=== PATIENT | male | born 1985 | race Caucasian/White ===

== ENCOUNTER 2021-05-13 13:24 | Emergency (ER) | payer BC ==
[~2021-05-13] VITALS: Ht 170.2 cm; Wt 190.5 kg
[~2021-05-13 13:24] MED LIST: ALBU90OI INH; AMOX500 PO; CEPH500 PO; CYCL10 PO; HYDACE5 PO; RXCYCL10 PO; SULTRIDS PO
== END 2021-05-13 14:52 | disposition home or self-care (01) ==
LOC: ER 13:24
DX: U07.1 COVID-19 (principal)
CPT/HCPCS: 99284

== ENCOUNTER 2021-05-14 19:34 | Emergency (ER) | payer BC | END 2021-05-14 20:30 | disposition home or self-care (01) | LOC: ER 19:34 | DX: U07.1 COVID-19 (principal) | CPT/HCPCS: 99283; A9270; J1100 ==

== ENCOUNTER 2025-09-01 21:04 | Emergency (ER) | payer BC ==
[~2025-09-01] VITALS: Ht 172.7 cm; Wt 163.3 kg
[2025-09-01] MEDS ORDERED: Lidocaine 2% Viscous Soln 15 ML UDC PO ONE ×2 (21:25→23:00)
[2025-09-01] MEDS ORDERED: Atropine/Scopalam/Hyoscam/PB 5 ML UDC PO ONE (21:25)
[2025-09-01 21:26] LABS: BASOPHILS ABSOLUTE AUTO 0.05 K/mm3 (0.00-0.23); BASOPHILS PERCENT AUTO 0 % (0-2); EOSINOPHILS ABSOLUTE AUTO 0.09 K/mm3 (0.00-0.68); EOSINOPHILS PERCENT AUTO 1 % (0-6); Hematocrit 45.3 % (37.0-53.0); Hemoglobin 15.0 g/dL (13.5-17.5); IMMATURE GRAN ABSOLUTE AUTO 0.04 K/mm3 (0.00-0.10); IMMATURE GRAN PERCENT AUTO 0 % (0-1); LYMPHOCYTES ABSOLUTE AUTO 2.60 K/mm3 (0.84-5.20); LYMPHOCYTES PERCENT AUTO 22 % (21-46); MONOCYTES ABSOLUTE AUTO 0.91 K/mm3 (0.16-1.47); MONOCYTES PERCENT AUTO 8 % (4-13); Mean Corpuscular HGB Conc 33.1 g/dL (31.5-36.5); Mean Corpuscular Volume 89 fL (80-100); NEUTROPHILS ABSOLUTE AUTO 8.06 K/mm3 (1.96-9.15); NEUTROPHILS PERCENT AUTO 69 % (41-73); NRBC ABSOLUTE 0.00 K/mm3 (0.00-0.02); NRBC Auto 0.0 /100 WBC (0.0-0.2); Platelet Count 258 K/mm3 (150-400); RDW Coefficient Variation 12.8 % (11.7-14.2); RDW Standard Deviation 41.9 fL (35.1-46.3)
[2025-09-01 21:50] LABS: Alanine Aminotransfer (ALT/SGP 30.0 U/L (12-78); Albumin, Blood 4.2 g/dL (3.4-5.0); Albumin/Globulin Ratio 1.2 (0.8-1.8); Anion Gap 8.0 mmol/L (3-11); Aspartate Aminotrans (AST/SGOT 20.0 U/L (12-37); Bilirubin, Total 0.3 mg/dL (0.1-1.0); Blood Urea Nitrogen 10.0 mg/dL (8-24); CO2, Blood 26.0 mmol/L (21-32); Calcium, Blood 8.8 mg/dL (8.5-10.1); Chloride, Blood 108.0 mmol/L (98-108); Creatinine, Blood 1.02 mg/dL (0.60-1.20); Globulin, Blood 3.4 g/dL (2.2-4.0); Glucose, Blood 120.0 mg/dL (70-99); Potassium, Blood 3.9 mmol/L (3.5-5.5); Sodium, Blood 138.0 mmol/L (136-145); Total Protein, Blood 7.6 g/dL (6.4-8.2)
[2025-09-01] MEDS ORDERED: Ondansetron HCl 2 MG / ML 2ML Vial IV ONE (23:00)
[2025-09-01] MEDS ORDERED: Ketorolac Tromethamine 30mg Vial IV ONE (23:00)
[2025-09-02] MEDS ORDERED: FentaNYL Citrate 50 MCG/ML 2 ML Injection IV ONE (01:05)
[2025-09-02 01:31] VITALS: BP 149/71
== END 2025-09-02 04:08 | disposition home or self-care (01) ==
LOC: ER 21:04
PROVIDERS: Physician Assistant
DX: K80.20 Calculus of gallbladder without cholecystitis without obstruction (principal)
CPT/HCPCS: 71046; 74177; 76705; 80053; 83690; 84484; 85025; 93005; 93010; 96374; 96375; 99285-25; A9270; J1885; J2405; J3010; Q9967